=== PATIENT | male | born 2000 | race African-American/Black ===

== ENCOUNTER 2018-06-05 11:14 | Outpatient (CLI) | payer BC | END 2018-06-05 11:15 | disposition home or self-care (01) | LOC: MADEKG 11:14 | PROVIDERS: ATTEND Family Medicine | DX: R00.1 Bradycardia, unspecified (principal) | CPT/HCPCS: 93005; 93010 ==

== ENCOUNTER 2018-08-24 06:29 | Emergency (ER) | payer BC ==
[2018-08-24] MEDS ORDERED: Ondansetron ODT 4 MG TAB ONE (07:16)
[2018-08-24] MEDS ORDERED: Diphenoxylate HCl/Atropine Tablet ONE (07:16)
== END 2018-08-24 07:25 | disposition home or self-care (01) ==
LOC: MADERS 06:29
DX: R11.2 Nausea with vomiting, unspecified (principal); F90.9 Attention-deficit hyperactivity disorder, unspecified type
CPT/HCPCS: 99283; Q0162

== ENCOUNTER 2018-12-19 15:26 | Emergency (ER) | payer BC, SELFPAY ==
[2018-12-19] MEDS ORDERED: Loperamide HCl 2 MG CAP ONE (15:48)
== END 2018-12-19 15:57 | disposition home or self-care (01) ==
LOC: MADERS 15:26
DX: K52.9 Noninfective gastroenteritis and colitis, unspecified (principal); F90.9 Attention-deficit hyperactivity disorder, unspecified type
CPT/HCPCS: 99283

== ENCOUNTER 2023-06-27 20:33 | Emergency (ER) | payer OTHER ==
[2023-06-27] MEDS ORDERED: Fluorescein Opthalmic Strip ONE (20:58)
[2023-06-27] MEDS ORDERED: Tetracaine 0.5% PF 4 ML BOT ONE (20:58)
[2023-06-27] MEDS ORDERED: Erythromycin Base 0.5% Ophth Oint 3.5 gm Tube ONE (22:01)
[2023-06-27] MEDS ORDERED: Ibuprofen 600 MG TAB ONE (22:01)
[2023-06-27] MEDS ORDERED: Acetaminophen 325 MG TAB ONE (22:01)
[2023-06-27] MEDS ORDERED: HYDROcodone/Acetaminophen 10/325 mg Tablet ONE (22:01)
== END 2023-06-27 22:20 | disposition home or self-care (01) ==
LOC: MADERS 20:33
DX: H16.133 Photokeratitis, bilateral (principal); W40.8XXA Explosion of other specified explosive materials, initial encounter; Y93.89 Activity, other specified; Y92.69 Other specified industrial and construction area as the place of occurrence of the external cause
CPT/HCPCS: 99283